=== PATIENT | male | born 1970 ===

== ENCOUNTER → 2017-05-02 | Outpatient (REF) | payer BC ==
[2017-05-02 14:17] LABS: BASO % 0.5 % (0.0-1.0); EOS # 0.1 10^3/uL (0.0-0.50); EOS % 1.7 % (0.0-3.0); IMMATURE GRANULOCYTE % 0.6 % (0-0); LYMPH # 2.4 10^3/uL (1.5-4.5); LYMPH % 30.7 % (24.0-44.0); MEAN CORPUSCULAR HEMOGLOBIN 29.8 pg (27.0-33.0); MEAN CORPUSCULAR HGB CONC 34.5 g/dl (32.0-36.5); MEAN CORPUSCULAR VOLUME 86.5 fl (80.0-96.0); MONO # 0.6 10^3/uL (0.0-0.8); NEUTROPHILS # 4.6 10^3/uL (1.8-7.7); NEUTROPHILS % 58.5 % (36.0-66.0); PLATELET COUNT, AUTOMATED 283 10^3/uL (150-450); RED CELL DISTRIBUTION WIDTH 12.2 % (11.5-14.5); WHITE BLOOD COUNT 7.9 10^3/uL (4.0-10.0)
[2017-05-02 14:47] LABS: ERYTHROCYTE SEDIMENTATION RATE 4 mm/hr (0-15)
[2017-05-02 14:49] LABS: ALBUMIN 3.9 GM/DL (3.2-5.2); ALBUMIN/GLOBULIN RATIO 1.22 (1.00-1.93); ALKALINE PHOSPHATASE 82 U/L (45-117); ALT/SGPT 58 U/L (12-78); ANION GAP 7 MEQ/L (8-16); AST/SGOT 25 U/L (7-37); BILIRUBIN,TOTAL 0.4 MG/DL (0.2-1.0); BLOOD UREA NITROGEN 14 MG/DL (7-18); CALCIUM LEVEL 10.6 MG/DL (8.5-10.1); CARBON DIOXIDE LEVEL 27 MEQ/L (21-32); CHLORIDE LEVEL 107 MEQ/L (98-107); CREATININE FOR GFR 0.86 MG/DL (0.70-1.30); GLOMERULAR FILTRATION RATE > 60.0 (>60); GLUCOSE, FASTING 122 MG/DL (70-105); POTASSIUM SERUM 4.1 MEQ/L (3.5-5.1); SODIUM LEVEL 141 MEQ/L (136-145); TOTAL PROTEIN 7.1 GM/DL (6.4-8.2)
[2017-05-02 15:17] LABS: FOLATE 11.3 NG/ML; VITAMIN B12 LEVEL 562 PG/ML
[2017-05-03 14:05] LABS: ALBUMIN % 60.6 % (55.8-66.1); GAMMA GLOBULIN % 16.4 % (11.1-18.8)
[2017-05-06 00:06] LABS: SJOGREN'S ANTI SS-A <0.2 AI (0.0-0.9); SJOGREN'S ANTI SS-B <0.2 AI (0.0-0.9)
[2017-05-07 14:19] LABS: VITAMIN E LEVEL 13.7 mg/L (5.3-17.5)
== END ==
LOC: M LABNEURO 13:27
PROVIDERS: ATTEND Psychiatry & Neurology Neurology
DX: G62.9 Polyneuropathy, unspecified (principal)